=== PATIENT | male | born 1975 | race Caucasian/White ===

== ENCOUNTER 2016-05-14 19:31 | Inpatient (IN) | payer SELFPAY ==
[~2016-05-14] VITALS: Ht 167.6 cm; Wt 69.2 kg
[~2016-05-14 19:31] MED LIST: CEPH500C3 PO; DICL75 PO
[2016-05-14 19:33] VITALS: BP 130/75; PULSE 106; RESP 18; TEMP 101; O2SAT 97
--- NOTE | 2016-05-14 20:17 | PD ---
Physical Exam Date Seen by Provider: May 14, 2016 Time Seen by Provider: 20:12 Narrative 40 YOWM C/O YEST AM WITH PIECE OF TILE IN HIS L KNEE. NOW INCREASED PAIN AND RED STREAKING ON LEG. POS F/C ,NAUSEA BUT NO VOMITING. IUTD VS NOTED. PT AWAITING BED PLACEMENT. Data Data Last Documented VS Vital Signs Date Time Temp Pulse Resp B/P Pulse Ox O2 Delivery O2 Flow Rate FiO2 05/14/16 19:33 101.0 106 18 130/[address] [facility] Medical Record Reviewed: Yes Supervised Visit with KELSI: Yes Jonathan Copeland May 14, 2016 20:17
[2016-05-14] MEDS ORDERED: SODIUM CHLOR 0.9% 1000 ML INJ 1,000 ML IV ONE ×2 (20:51)
[2016-05-14] MEDS ORDERED: VANCOMYCIN INJ 1,000 MG in SODIUM CHLOR 0.9% 250 ML INJ 250 ML IV STA (20:51)
[2016-05-14] MEDS ORDERED: SODIUM CHLOR 0.9% 1000 ML INJ 400 ML IV ONE (20:51)
[2016-05-14] MEDS ORDERED: PIPERACIL-TAZO 4.5 GM PREMIX 100 ML IV STA (20:51)
[2016-05-14] MEDS ORDERED: IBUPROFEN 800 MG TAB PO ONE (21:00)
[2016-05-14] MEDS ORDERED: ONDANSETRON HCL 4 MG/2 ML VIAL IV ONE (21:00)
[2016-05-14 21:11] VITALS: RESP 22; O2SAT 98
[2016-05-14 21:14] VITALS: BP 124/61; PULSE 95; RESP 22; O2SAT 98
--- NOTE | 2016-05-14 21:15 | PD ---
HPI Chief Complaint: Skin Problem Time Seen by Provider: 20:56 Travel History International Travel<30 days: No Contact w/Intl Traveler<30days: No Traveled to known affect area: No History of Present Illness HPI Patient is a 40-year-old male presenting to the emergency room for evaluation of left knee pain and swelling. Patient states he had a piece of tile stuck and it yesterday while he was removing tile from his home. He believes he got it all out however he's had increased redness, swelling, pain since that time. He reports that his tetanus vaccine is up-to-date, it was given in the last 3 years. He denies any significant past medical history. He states that he's had body aches and chills and has felt sick all day. Patient denies any IV drug use. PFSH Past Medical History Medical History: Denies Significant Hx Diminished Hearing: No Immunizations Current: Yes Tetanus Vaccination: < 5 Years Past Surgical History Surgical History: No Previous Surgery Social History Alcohol Use: No Tobacco Use: Yes (1 PK) Substance Use: Yes (MARIJUANA) Allergies-Medications (Allergen,Severity, Reaction): Coded Allergies: No Known Allergies (Verified , 05/14/16) Reported Meds & Prescriptions Reported Meds & Active Scripts Active No Active Prescriptions or Reported Medications Review of Systems Except as stated in HPI: all other systems reviewed are Neg General / Constitutional: Positive: Fever, Chills HENT: No: Headaches Cardiovascular: No: Chest Pain or Discomfort Respiratory: No: Cough, Shortness of Breath Gastrointestinal: No: Nausea, Vomiting, Abdominal Pain Genitourinary: No: Dysuria Musculoskeletal: Positive: Myalgias, Edema, Pain Skin: Positive Change in Pigmentation, Positive Lesions Neurologic: No: Weakness, Dizziness Physical Exam Narrative GENERAL: Well-developed, well-nourished, alert male. Appears uncomfortable, in no acute distress. SKIN: Focused skin assessment warm/dry. Significant erythema and induration to left anterior knee, scabbed lesion on the Patella. Tender to palpation, warm to touch. Erythema extends down the anterior left hayes and lateral calf. HEAD: Atraumatic. Normocephalic. EYES: Pupils equal and round. No scleral icterus. No injection or drainage. ENT: No nasal bleeding or discharge. Mucous membranes pink and moist. NECK: Trachea midline. No JVD. CARDIOVASCULAR: Regular rate and rhythm. No murmur appreciated. RESPIRATORY: No accessory muscle use. Clear to auscultation. Breath sounds equal bilaterally. GASTROINTESTINAL: Abdomen soft, non-tender, nondistended. Hepatic and splenic margins not palpable. MUSCULOSKELETAL: No obvious deformities. No clubbing. No cyanosis. Mild edema noted to left anterior knee. Positive pedal pulses, brisk less than 3 second capillary refill. NEUROLOGICAL: Awake and alert. No obvious cranial nerve deficits. Motor grossly within normal limits. Normal speech. PSYCHIATRIC: Appropriate mood and affect; insight and judgment normal. Data Data Last Documented VS Vital Signs Date Time Temp Pulse Resp B/P Pulse Ox O2 Delivery O2 Flow Rate FiO2 05/14/16 21:14 95 22 124/61 98 Room Air 05/14/16 19:33 101.0 Orders Complete Blood Count With Diff (05/14/16 20:51) Comprehensive Metabolic Panel (05/14/16 20:51) Prothrombin Time / Inr (Pt) (05/14/16 20:51) Act Partial Throm Time (Ptt) (05/14/16 20:51) Lactic Acid Sepsis Protocol (05/14/16 20:51) Magnesium (Mg) (05/14/16 20:51) Blood Culture (05/14/16 20:51) Blood Glucose (05/14/16 20:51) Ecg Monitoring (05/14/16 20:51) Iv Access Insert/Monitor (05/14/16 20:51) Oximetry (05/14/16 20:51) Oxygen Administration (05/14/16 20:51) Ibuprofen (Motrin) (05/14/16 21:00) Ondansetron Inj (Zofran Inj) (05/14/16 21:00) Piperacil-Tazo 4.5 Gm Premix (Zosyn 4.5 (05/14/16 20:51) Vancomycin Inj (Vancomycin Inj) (05/14/16 20:51) Sodium Chlor 0.9% 1000 Ml Inj (Ns 1000 M (05/14/16 20:51) Sodium Chlor 0.9% 1000 Ml Inj (Ns 1000 M (05/14/16 20:51) Sodium Chlor 0.9% 1000 Ml Inj (Ns 1000 M (05/14/16 20:51) Knee, Complete (4vws) (05/14/16 ) C-Reactive Protein (Crp) (05/14/16 21:41) Westergren Sedimentation Rate (05/14/16 21:41) Admit Order (Ed Use Only) (05/14/16 23:05) Labs Laboratory Tests Test 05/14/16 21:00 White Blood Count 12.2 TH/MM3 Red Blood Count 4.57 MIL/MM3 Hemoglobin 12.8 GM/DL Hematocrit 37.9 % Mean Corpuscular Volume 83.0 FL Mean Corpuscular Hemoglobin 27.9 PG Mean Corpuscular Hemoglobin 33.7 % Concent Red Cell Distribution Width 14.0 % Platelet Count 276 TH/MM3 Mean Platelet Volume 7.2 FL Neutrophils (%) (Auto) 75.3 % Lymphocytes (%) (Auto) 15.6 % Monocytes (%) (Auto) 8.7 % Eosinophils (%) (Auto) 0.2 % Basophils (%) (Auto) 0.2 % Neutrophils # (Auto) 9.2 TH/MM3 Lymphocytes # (Auto) 1.9 TH/MM3 Monocytes # (Auto) 1.1 TH/MM3 Eosinophils # (Auto) 0.0 TH/MM3 Basophils # (Auto) 0.0 TH/MM3 CBC Comment DIFF FINAL Differential Comment Erythrocyte Sedimentation Rate 24 mm/hr Prothrombin Time 11.0 SEC Prothromb Time International 1.0 RATIO Ratio Activated Partial 30.8 SEC Thromboplast Time Sodium Level 138 MEQ/L Potassium Level 4.0 MEQ/L Chloride Level 107 MEQ/L Carbon Dioxide Level 26.2 MEQ/L Anion Gap 5 MEQ/L Blood Urea Nitrogen 14 MG/DL Creatinine 0.94 MG/DL Estimat Glomerular Filtration 89 ML/MIN Rate Random Glucose 111 MG/DL Lactic Acid Level 1.4 mmol/L Calcium Level 8.6 MG/DL Magnesium Level 1.9 MG/DL Total Bilirubin 0.2 MG/DL Aspartate Amino Transf 16 U/L (AST/SGOT) Alanine Aminotransferase 20 U/L (ALT/SGPT) Alkaline Phosphatase 74 U/L C-Reactive Protein 8.60 MG/DL Total Protein 6.9 GM/DL Albumin 3.4 GM/DL MDM Medical Decision Making Medical Screen Exam Complete: Yes Emergency Medical Condition: Yes Interpretation(s) Vital Signs Date Time Temp Pulse Resp B/P Pulse Ox O2 Delivery O2 Flow Rate FiO2 05/14/16 20:49 16 05/14/16 19:33 101.0 106 18 130/75 97 Room Air Differential Diagnosis Cellulitis versus abscess versus septic arthritis versus sepsis versus other Narrative Course Patient is a 40-year-old male presenting to emergency for evaluation of left knee pain, redness and swelling. Patient is febrile with a temp of 101, ibuprofen 800 mg by mouth 1 dose ordered. IV fluids ordered. X-ray of the left knee ordered. Sepsis protocol initiated, blood cultures and lactic acid obtained. X-ray of the left knee shows prepatellar soft tissue swelling, no acute fracture. CBC shows white count 12.2 with left shift. CRP is 8.60 Lactic acid 1.4 Chemistry is unremarkable Vital signs reassessed, patient is afebrile with a temp of 99.1. Patient received 1 g of vancomycin IV as well as Zosyn. Patient meets sepsis criteria with a temp of 101, tachycardic on arrival, white count elevated greater than 12,000. Suspected source would be cellulitis of the left knee. Patient has responded well to IV fluid resuscitation, heart rate is currently in the 90s. [facility] paged for admission. Dr. Ko accepted admission. Orders placed. Sepsis Criteria SIRS Criteria (2 or more): Temp > 100.9 or < 96.8, Heart rate over 90, WBC > 53059, < 4000 or > 10% bands Sepsis Criteria (SIRS+source): Infect source susp/known (left knee cellulitis) Criteria Outcome: Meets sepsis criteria Diagnosis Primary Impression: Sepsis Qualified Code: A41.9 - Sepsis, due to unspecified organism Admitting Information Admitting Physician Requests: Admit Scripts No Active Prescriptions or Reported Meds Condition: Stable Rona Villareal [facility] May 14, 2016 21:15
[2016-05-14 21:26] LABS: AUTOMATED NEUTROPHIL # 9.2 TH/MM3 (1.8-7.7); BASOPHIL % 0.2 % (0.0-2.0); EOSINOPHIL % 0.2 % (0.0-4.0); HEMATOCRIT 37.9 % (39.0-51.0); HEMO FLAGS DIFF FINAL; LYMPH % 15.6 % (9.0-44.0); LYMPHOCYTE # 1.9 TH/MM3 (1.0-4.8); MEAN CORPUSCULAR HEMOGLOBIN 27.9 PG (27.0-34.0); MEAN CORPUSCULAR HGB CONC 33.7 % (32.0-36.0); MONO % 8.7 % (0.0-8.0); NEUT % 75.3 % (16.0-70.0); PLATELET COUNT 276 TH/MM3 (150-450); RED BLOOD COUNT 4.57 MIL/MM3 (4.50-5.90); WHITE BLOOD COUNT 12.2 TH/MM3 (4.0-11.0)
--- NOTE | 2016-05-14 21:40 | RADRPT ---
EXAM DATE/TIME: 05/14/2016 21:07 [place] COMPARISON: No previous studies available for comparison. INDICATIONS : Pain, swelling and redness with abrasion left knee, injured on a piece of tile. MEDICAL HISTORY : None. SURGICAL HISTORY : None. ENCOUNTER: Initial ACUITY: 2 days PAIN SCORE: 10/10 LOCATION: Left Knee FINDINGS: Four view examination of the left knee demonstrates no evidence of fracture or dislocation. Bony min eralization is normal. The articular surfaces are intact. There is soft tissue swelling in the prepa tellar soft tissues. CONCLUSION: 1. Prepatellar soft tissue swelling. No acute bony abnormality. Jonathan Turner MD on May 14, 2016 at 21:36 Board Certified Radiologist. This report was verified electronically.
[2016-05-14 21:48] LABS: APTT (PATIENT) 30.8 SEC (24.3-30.1)
[2016-05-14 21:55] LABS: ANION GAP 5 MEQ/L (5-15); AST (GOT) 16 U/L (15-37); BICARBONATE 26.2 MEQ/L (21.0-32.0); BLOOD UREA NITROGEN 14 MG/DL (7-18); CHLORIDE 107 MEQ/L (98-107); GLOMERULAR FILTRATION RATE 89 ML/MIN (>89); MAGNESIUM 1.9 MG/DL (1.5-2.5); SODIUM (NA) 138 MEQ/L (136-145)
[2016-05-14 21:58] LABS: ALKALINE PHOSPHATASE 74 U/L (45-117); ALT (GPT) 20 U/L (12-78); TOTAL BILIRUBIN ADULT 0.2 MG/DL (0.2-1.0)
--- NOTE | 2016-05-14 23:10 | HHI.HP ---
[facility] No Primary Care Physician Admission Diagnosis sepsis Diagnoses: (1) Sepsis Diagnosis: Principal (2) Left knee skin infection Diagnosis: Principal (3) Tobacco abuse Diagnosis: Principal Travel History International Travel<30 Days: No Contact w/Intl Traveler <30 Da: No Traveled to Known Affected Are: No History of Present Illness This is a 40-year-old male with no significant PMH who presented to the ER with complaints of left knee pain and swelling x1 day. States he was lifting up tile in his house when a piece of it got lodged in his knee. Has had worsening pain/swelling since that time. Denies fever or chills. On arrival, BP 130/75, HR 106, O2 sat 97% on RA, Temp 101.0. WBC 12.2. ESR 24. Chemistry essentially unremarkable. Lactic Acid 1.4. Knee X-ray with prepatellar soft tissue swelling, no foreign body noted. S/p Blood Cultures, Vanc/Zosyn in ER. Review of Systems Except as stated in HPI: all other systems reviewed are Neg ROS: 14 point review of systems otherwise negative. Past Family Social History Past Medical History PMH: None Past Surgical History PAST SURGICAL HISTORY: None Allergies: Coded Allergies: No Known Allergies (Verified , 05/14/16) Family History PAST FAMILY HISTORY: Reviewed. No h/o DM or CAD Social History PAST SOCIAL HISTORY: Negative for alcohol. Smokes 1ppd. +Marijuana. Physical Exam Vital Signs Vital Signs Date Time Temp Pulse Resp B/P Pulse Ox O2 Delivery O2 Flow Rate FiO2 05/14/16 21:14 95 22 124/61 98 Room Air 05/14/16 21:11 22 98 Room Air 05/14/16 21:11 98 Room Air 05/14/16 20:49 16 05/14/16 19:33 101.0 106 18 130/75 97 Room Air Physical Exam PE: GENERAL: Young white male in no acute distress. HEENT: PERRLA, EOMI. No scleral icterus or conjunctival pallor. No lid lag or facial droop. CARDIOVASCULAR: Regular rate and rhythm. No obvious murmurs to auscultation. No chest tenderness to palpation. RESPIRATORY: No obvious rhonchi or wheezing. Clear to auscultation. Breath sounds equal bilaterally. GASTROINTESTINAL: Abdomen soft, non-tender, nondistended. BS normal. MUSCULOSKELETAL: Extremities without clubbing, cyanosis, or edema. No obvious deformities. Left knee w/ small scab, +erythema/edema to LLE. NEUROLOGICAL: Awake, alert and oriented x4. No focal neurologic deficits. Moving both upper and lower extremities spontaneously. Laboratory Laboratory Tests Test 05/14/16 21:00 White Blood Count 12.2 Red Blood Count 4.57 Hemoglobin 12.8 Hematocrit 37.9 Mean Corpuscular Volume 83.0 Mean Corpuscular Hemoglobin 27.9 Mean Corpuscular Hemoglobin 33.7 Concent Red Cell Distribution Width 14.0 Platelet Count 276 Mean Platelet Volume 7.2 Neutrophils (%) (Auto) 75.3 Lymphocytes (%) (Auto) 15.6 Monocytes (%) (Auto) 8.7 Eosinophils (%) (Auto) 0.2 Basophils (%) (Auto) 0.2 Neutrophils # (Auto) 9.2 Lymphocytes # (Auto) 1.9 Monocytes # (Auto) 1.1 Eosinophils # (Auto) 0.0 Basophils # (Auto) 0.0 CBC Comment DIFF FINAL Differential Comment Erythrocyte Sedimentation Rate 24 Prothrombin Time 11.0 Prothromb Time International 1.0 Ratio Activated Partial 30.8 Thromboplast Time Sodium Level 138 Potassium Level 4.0 Chloride Level 107 Carbon Dioxide Level 26.2 Anion Gap 5 Blood Urea Nitrogen 14 Creatinine 0.94 Estimat Glomerular Filtration 89 Rate Random Glucose 111 Lactic Acid Level 1.4 Calcium Level 8.6 Magnesium Level 1.9 Total Bilirubin 0.2 Aspartate Amino Transf 16 (AST/SGOT) Alanine Aminotransferase 20 (ALT/SGPT) Alkaline Phosphatase 74 C-Reactive Protein 8.60 Total Protein 6.9 Albumin 3.4 Date/Time Procedure Status Source Growth 05/14/16 21:15 Aerobic Blood Culture Received Blood Peripheral Pending 05/14/16 21:15 Anaerobic Blood Culture Received Blood Peripheral Pending Result Diagram: 05/14/16 2100 05/14/16 2100 Assessment and Plan Problem List: (1) Sepsis ICD Code: A41.9 Status: Acute (2) Left knee skin infection Status: Acute (3) Tobacco abuse ICD Code: Z72.0 Status: Acute Assessment and Plan A/P: 1. Sepsis: Temp 101.0, HR 106, WBC 12.2, Source-Left Knee Infection. S/p Blood Cultures, Vanc/Zosyn in ER. Follow up cultures, continue w/ IV Abx. 2. Left Knee Infection: s/p injury w/ floor tile x1 day, Knee X-ray w/ prepatellar soft tissue swelling, no foreign body noted, images reviewed by me. Continue w/ IV Abx as above, follow up cultures, Ortho eval if needed. 3. Tobacco Abuse: Pt counselled. NicoDerm prn if needed. 4. DVT Prophylaxis: Mechanical contraindication due to injury/wound, pt ambulatory. 5. Social work for d/c planning as needed. 6. Case discussed w/ ER physician at length. Physician Certification 2 Midnight Certification Type: Admission for Inpatient Services Order for Inpatient Services The services are ordered in accordance with Medicare regulations or non- Medicare payer requirements, as applicable. In the case of services not specified as inpatient-only, they are appropriately provided as inpatient services in accordance with the 2-midnight benchmark. Estimated LOS (days): 2 days is the estimated time the patient will need to remain in the hospital, assuming treatment plan goals are met and no additional complications. Post-Hospital Plan: Not yet determined Problem Qualifiers (1) Sepsis: Qualified Code: A41.9 - Sepsis, due to unspecified organism Tatiana Ko MD May 14, 2016 23:10
[2016-05-14] MEDS ORDERED: ONDANSETRON HCL 4 MG/2 ML VIAL IVP PRN (23:15)
[2016-05-14] MEDS ORDERED: ACETAMINOPHEN 325 MG TAB PO PRN (23:15)
[2016-05-14] MEDS ORDERED: SODIUM CHLORIDE 0.9% FLUSH 10 ML FLUSH IV FLUSH PRN (23:15)
[2016-05-14] MEDS ORDERED: Vancomycin Consult Pharmacy 1 EA OTHER SCH (23:15)
[2016-05-14] MEDS ORDERED: MORPHINE SULFATE 4 MG/ML INJ IV PRN (23:15)
[2016-05-14] MEDS ORDERED: BISACODYL 10 MG SUPP RECTAL PRN (23:15)
[2016-05-14] MEDS: SODIUM CHLOR 0.9% 1000 ML INJ 1,000 ML IV SCH (23:42)
[2016-05-14] MEDS ORDERED: VANCOMYCIN 1,000 MG/NS 250 ML IV ONE ×2 (23:59)
[2016-05-15] VITALS (9 sets, daily range): BP systolic 104–136; BP diastolic 57–78; PULSE 71–85; RESP 16–18; TEMP 98–98.3; O2SAT 96–99
[2016-05-15] MEDS: PIPERACIL-TAZO 4.5 GM PREMIX 100 ML IV SCH ×4 (04:55→20:59)
[2016-05-15] MEDS: ACETAMINOPHEN/HYDROcodone 325 MG/5 MG TAB PO PRN ×4 (05:15→18:29)
[2016-05-15 07:18] LABS: AUTOMATED NEUTROPHIL # 7.9 TH/MM3 (1.8-7.7); BASOPHIL % 0.2 % (0.0-2.0); EOSINOPHIL % 0.3 % (0.0-4.0); HEMATOCRIT 35.3 % (39.0-51.0); HEMO FLAGS DIFF FINAL; LYMPH % 17.7 % (9.0-44.0); LYMPHOCYTE # 1.9 TH/MM3 (1.0-4.8); MEAN CELL VOLUME 83.8 FL (80.0-100.0); MEAN CORPUSCULAR HEMOGLOBIN 27.5 PG (27.0-34.0); MEAN CORPUSCULAR HGB CONC 32.9 % (32.0-36.0); NEUT % 72.8 % (16.0-70.0); PLATELET COUNT 240 TH/MM3 (150-450); RED BLOOD COUNT 4.21 MIL/MM3 (4.50-5.90); RED CELL DISTRIBUTION WIDTH 14.9 % (11.6-17.2); WHITE BLOOD COUNT 10.9 TH/MM3 (4.0-11.0)
[2016-05-15] MEDS: SODIUM CHLORIDE 0.9% FLUSH 10 ML FLUSH IV FLUSH SCH ×2 (07:48→21:00)
[2016-05-15 07:55] LABS: ALKALINE PHOSPHATASE 68 U/L (45-117); ALT (GPT) 30 U/L (12-78); ANION GAP 5 MEQ/L (5-15); AST (GOT) 30 U/L (15-37); BICARBONATE 27.3 MEQ/L (21.0-32.0); BLOOD UREA NITROGEN 10 MG/DL (7-18); CHLORIDE 108 MEQ/L (98-107); GLOMERULAR FILTRATION RATE 104 ML/MIN (>89); POTASSIUM 3.8 MEQ/L (3.5-5.1); SODIUM (NA) 140 MEQ/L (136-145); TOTAL BILIRUBIN ADULT 0.6 MG/DL (0.2-1.0)
[2016-05-15] MEDS: SODIUM CHLOR 0.9% 1000 ML INJ 1,000 ML IV SCH (08:00)
--- NOTE | 2016-05-15 11:21 | HHI.PR ---
Subjective Remarks Follow-up sepsis/left knee cellulitis 05/15/16-patient seen and examined, currently afebrile, continued to complain of left knee pain. denies any chest pain or shortness of breath Objective Vitals Vital Signs Date Time Temp Pulse Resp B/P Pulse Ox O2 Delivery O2 Flow Rate FiO2 05/15/16 09:26 Room Air 05/15/16 08:00 73 05/15/16 08:00 98.0 74 18 129/68 98 05/15/16 05:08 75 05/15/16 04:00 98.3 82 16 136/78 99 05/15/16 04:00 Room Air 05/15/16 03:24 Room Air 05/15/16 03:24 98.1 75 16 104/60 98 05/15/16 01:42 98.1 75 16 104/60 98 05/15/16 00:06 73 16 118/60 98 Room Air 05/14/16 21:14 95 22 124/61 98 Room Air 05/14/16 21:11 22 98 Room Air 05/14/16 21:11 98 Room Air 05/14/16 20:49 16 05/14/16 19:33 101.0 106 18 130/75 97 Room Air I/O 05/14/16 05/14/16 05/14/16 05/15/16 05/15/16 05/15/16 07:00 15:00 23:00 07:00 15:00 23:00 Intake Total 586 ml Output Total 755 ml Balance -169 ml Intake IV Total 586 ml Output Urine Total 755 ml Result Diagram: 05/15/16 0624 05/15/16 0624 Imaging Last Impressions Knee X-Ray 05/14/16 0000 Signed Impressions: Service Date/Time: Saturday, May 14, 2016 21:07 - CONCLUSION: 1. Prepatellar soft tissue swelling. No acute bony abnormality. Jonathan Turner MD Objective Remarks GENERAL: NAD SKIN: Warm and dry. erythema and redness@left knee HEAD: Normocephalic. EYES: No scleral icterus. No injection or drainage. NECK: Supple, trachea midline. No JVD or lymphadenopathy. CARDIOVASCULAR: Regular rate and rhythm without murmurs, gallops, or rubs. RESPIRATORY: Breath sounds equal bilaterally. No accessory muscle use. GASTROINTESTINAL: Abdomen soft, non-tender, nondistended. MUSCULOSKELETAL: No cyanosis, or edema. Limited ROM Left knee BACK: Nontender without obvious deformity. No CVA tenderness. A/P Problem List: (1) Sepsis ICD Code: A41.9 Status: Acute (2) Left knee skin infection Status: Acute (3) Tobacco abuse ICD Code: Z72.0 Status: Acute (4) Cellulitis of knee, left ICD Code: L03.116 Status: Acute Assessment and Plan 40-year-old with 1. Sepsis: Source-Left Knee Infection. S/p Blood Cultures, Vanc/Zosyn in ER. Follow up cultures, continue w/ IV Abx. 2. Left Knee Infection: Knee X-ray w/ prepatellar soft tissue swelling, no foreign body noted. Continue w/ IV Abx as above, follow up cultures, Ortho eval if needed. Consider knee US 3. Leukocytosis: Resolved 4. Tobacco Abuse: Pt counselled. NicoDerm prn if needed. 5. DVT Prophylaxis: Mechanical contraindication due to injury/wound, pt ambulatory. Problem Qualifiers (1) Sepsis: Qualified Code: A41.9 - Sepsis, due to unspecified organism Bi Bowling MD May 15, 2016 11:21
[2016-05-15] MEDS: VANCOMYCIN INJ 1,250 MG in SODIUM CHLOR 0.9% 250 ML INJ 250 ML IV SCH (11:49)
[2016-05-15] MEDS: NICOTINE 21 MG/24 HR PATCH T-DERMAL SCH (18:58)
[2016-05-16] MEDS: VANCOMYCIN INJ 1,250 MG in SODIUM CHLOR 0.9% 250 ML INJ 250 ML IV SCH (00:33)
[2016-05-16] MEDS: ACETAMINOPHEN/HYDROcodone 325 MG/5 MG TAB PO PRN ×3 (00:35→09:58)
[2016-05-16 01:12] VITALS: BP 132/62; PULSE 90; RESP 21; TEMP 99.9; O2SAT 95
[2016-05-16] MEDS: PIPERACIL-TAZO 4.5 GM PREMIX 100 ML IV SCH ×2 (03:30→08:21)
[2016-05-16 04:35] VITALS: BP 115/55; PULSE 75; RESP 20; TEMP 97.9; O2SAT 97
[2016-05-16 08:00] VITALS: BP 150/77; PULSE 84; RESP 12; TEMP 98.1; O2SAT 95
[2016-05-16] MEDS: NICOTINE 21 MG/24 HR PATCH T-DERMAL SCH (08:21)
[2016-05-16] MEDS: SODIUM CHLORIDE 0.9% FLUSH 10 ML FLUSH IV FLUSH SCH (08:21)
--- NOTE | 2016-05-16 08:52 | HHI.PR ---
Subjective Remarks Follow-up sepsis/left knee cellulitis 05/15/16-patient seen and examined, currently afebrile, continued to complain of left knee pain. denies any chest pain or shortness of breath 05/16/16-patient seen and examined. Afebrile. Reports significant improvement of left knee redness/cellulitis. States now he is able to move LOWER extremity and able to put more weight on it Objective Vitals Vital Signs Date Time Temp Pulse Resp B/P Pulse Ox O2 Delivery O2 Flow Rate FiO2 05/16/16 04:35 97.9 75 20 115/55 97 05/16/16 01:12 99.9 90 21 132/62 95 05/15/16 20:00 Room Air 05/15/16 20:00 82 05/15/16 16:00 98.1 85 16 124/57 96 05/15/16 12:00 98.3 71 18 122/63 97 05/15/16 09:26 Room Air I/O 05/15/16 05/15/16 05/15/16 05/16/16 05/16/16 05/16/16 07:00 15:00 23:00 07:00 15:00 23:00 Intake Total 586 ml 600 ml 660 ml Output Total 755 ml 700 ml Balance -169 ml -100 ml 660 ml Intake Oral 600 ml 660 ml IV Total 586 ml Output Urine Total 755 ml 700 ml # Voids 2 # Bowel Movements 0 0 Result Diagram: 05/15/16 0624 05/15/16 0624 Imaging Last Impressions Knee X-Ray 05/14/16 0000 Signed Impressions: Service Date/Time: Saturday, May 14, 2016 21:07 - CONCLUSION: 1. Prepatellar soft tissue swelling. No acute bony abnormality. Jonathan Turner MD Objective Remarks GENERAL: NAD SKIN: Warm and dry.improving erythema and redness@left knee-fluctuance HEAD: Normocephalic. EYES: No scleral icterus. No injection or drainage. NECK: Supple, trachea midline. No JVD or lymphadenopathy. CARDIOVASCULAR: Regular rate and rhythm without murmurs, gallops, or rubs. RESPIRATORY: Breath sounds equal bilaterally. No accessory muscle use. GASTROINTESTINAL: Abdomen soft, non-tender, nondistended. MUSCULOSKELETAL: No cyanosis, or edema. increase ROM Left knee BACK: Nontender without obvious deformity. No CVA tenderness. A/P Problem List: (1) Sepsis ICD Code: A41.9 Status: Acute (2) Left knee skin infection Status: Acute (3) Tobacco abuse ICD Code: Z72.0 Status: Acute (4) Cellulitis of knee, left ICD Code: L03.116 Status: Acute Assessment and Plan 40-year-old with 1. Sepsis: Resolved. Source-Left Knee Infection. S/p Blood Cultures, Vanc/ Zosyn in ER. Follow up cultures, continue w/ IV Abx. 2. Left Knee Infection: Knee X-ray w/ prepatellar soft tissue swelling, no foreign body noted. Continue w/ IV Abx as above, follow up cultures, Ortho eval if needed. Consider knee US 3. Leukocytosis: Resolved 4. Tobacco Abuse: Pt counselled. Geniam . 5. DVT Prophylaxis: Mechanical contraindication due to injury/wound, pt ambulatory. Problem Qualifiers (1) Sepsis: Qualified Code: A41.9 - Sepsis, due to unspecified organism Bi Bowling MD May 16, 2016 08:51
--- NOTE | 2016-05-16 08:53 | HHI.DS ---
Discharge Summary Admission Date May 14, 2016 at 23:06 Discharge Date: May 16, 2016 Admitting Diagnosis sepsis (1) Sepsis ICD Code: A41.9 (2) Left knee skin infection (3) Tobacco abuse ICD Code: Z72.0 (4) Cellulitis of knee, left ICD Code: L03.116 Procedures none Brief History - From Admission This is a 40-year-old male with no significant PMH who presented to the ER with complaints of left knee pain and swelling x1 day. States he was lifting up tile in his house when a piece of it got lodged in his knee. Has had worsening pain/swelling since that time. Denies fever or chills. On arrival, BP 130/75, HR 106, O2 sat 97% on RA, Temp 101.0. WBC 12.2. ESR 24. Chemistry essentially unremarkable. Lactic Acid 1.4. Knee X-ray with prepatellar soft tissue swelling, no foreign body noted. S/p Blood Cultures, Vanc/Zosyn in ER. CBC/BMP: 05/15/16 0624 05/15/16 0624 Significant Findings Laboratory Tests Test 05/14/16 05/15/16 21:00 06:24 White Blood Count 12.2 TH/MM3 (4.0-11.0) Hemoglobin 12.8 GM/DL 11.6 GM/DL (13.0-17.0) (13.0-17.0) Hematocrit 37.9 % 35.3 % (39.0-51.0) (39.0-51.0) Neutrophils (%) (Auto) 75.3 % 72.8 % (16.0-70.0) (16.0-70.0) Monocytes (%) (Auto) 8.7 % (0.0-8.0) 9.0 % (0.0-8.0) Neutrophils # (Auto) 9.2 TH/MM3 7.9 TH/MM3 (1.8-7.7) (1.8-7.7) Monocytes # (Auto) 1.1 TH/MM3 1.0 TH/MM3 (0-0.9) (0-0.9) Erythrocyte Sedimentation Rate 24 mm/hr (0-15) Activated Partial 30.8 SEC Thromboplast Time (24.3-30.1) Random Glucose 111 MG/DL (74-106) C-Reactive Protein 8.60 MG/DL (0.00-0.30) Red Blood Count 4.21 MIL/MM3 (4.50-5.90) Chloride Level 108 MEQ/L (98-107) Calcium Level 7.9 MG/DL (8.5-10.1) Total Protein 6.0 GM/DL (6.4-8.2) Albumin 2.8 GM/DL (3.4-5.0) PE at Discharge GENERAL: NAD SKIN: Warm and dry.improving erythema and redness@left knee-fluctuance HEAD: Normocephalic. EYES: No scleral icterus. No injection or drainage. NECK: Supple, trachea midline. No JVD or lymphadenopathy. CARDIOVASCULAR: Regular rate and rhythm without murmurs, gallops, or rubs. RESPIRATORY: Breath sounds equal bilaterally. No accessory muscle use. GASTROINTESTINAL: Abdomen soft, non-tender, nondistended. MUSCULOSKELETAL: No cyanosis, or edema. increase ROM Left knee BACK: Nontender without obvious deformity. No CVA tenderness. Hospital Course 1. Sepsis: Resolved. Source-Left Knee Infection. S/p Blood Cultures, Vanc/ Zosyn in ER. He was treated w/ IV Abx. 2. Left Knee Infection: Knee X-ray w/ prepatellar soft tissue swelling, no foreign body noted. He was treated w/ IV Abx as above, and cultures remain NTD 3. Leukocytosis: Resolved 4. Tobacco Abuse: Pt counselled. Barrera . 5. DVT Prophylaxis: Mechanical contraindication due to injury/wound, pt ambulatory. Pt Condition on Discharge: Stable Discharge Disposition: Discharge Home Discharge Time: <= 30 minutes Discharge Instructions Follow up Referrals: PCP Follow-up - 1 Week New Medications: Cephalexin (Keflex) 500 Mg Cap 500 MG PO Q8H Infection #30 Ref 0 CAP Sulfamethoxazole-Trimethoprim (Bactrim DS) 800-160 Mg Tab 1 TAB PO BID Infection #14 Ref 0 TAB Bi Bowling MD May 16, 2016 08:53
[2016-05-16] MEDS ORDERED: CEPH-460 PO (08:59)
[2016-05-16] MEDS ORDERED: BACT800T5 PO (08:59)
[2016-05-16] MEDS ORDERED: REMOVE OLD PATCH T-DERMAL SCH (09:00)
[2016-05-16] MEDS ORDERED: PHARMACY ORDERED LAB ONE (11:45)
== END 2016-05-16 10:24 | disposition home or self-care (01) | DRG 872 ==
LOC: NEPE 19:31 → NEDA 23:06 → N04B 05-15 03:55
PROVIDERS: ADMIT Hospitalist; ATTEND Hospitalist
DX: A41.9 Sepsis, unspecified organism (principal); L03.116 Cellulitis of left lower limb; F17.200 Nicotine dependence, unspecified, uncomplicated
CPT/HCPCS: 73564; 80053; 82565; 83605; 83735; 85025; 85610; 85652; 85730; 86140; 87040; 96374; 96375; J2405; J2543; J3370; J7030; J7050

== ENCOUNTER 2017-01-17 10:39 | Emergency (ER) | payer SELFPAY ==
[~2017-01-17] VITALS: Ht 170.2 cm; Wt 78.0 kg
[~2017-01-17 10:39] MED LIST changes: +BACT800T5 PO; +CEPH-460 PO; -CEPH500C3 PO; -DICL75 PO
[2017-01-17 10:41] VITALS: BP 143/96; PULSE 92; RESP 20; TEMP 98; O2SAT 100
--- NOTE | 2017-01-17 11:04 | PD ---
HPI Chief Complaint: Back/ Neck Pain or Injury Time Seen by Provider: 10:51 Travel History International Travel<30 days: No Contact w/Intl Traveler<30days: No History of Present Illness HPI 41 YO M presents to the ED for evaluation of 10/10 back pain, radiating down the right leg. Onset just before arrival, after the patient was attempting to lower a generator out of the back of a truck. Patient states that he felt and heard a pop. He states that pain began shooting down his leg. He endorses numbness of that leg. He has been ambulatory since the accident. He denies weakness, limitations to range of motion, saddle anesthesia or urinary/fecal incontinence. He endorses a history of sciatica in the past. No treatment attempted before arrival. PFSH Past Medical History Cancer: No Cardiovascular Problems: No Diminished Hearing: No Endocrine: No Genitourinary: No Immune Disorder: No Musculoskeletal: No Neurologic: No Psychiatric: No Reproductive: No Respiratory: No Immunizations Current: Yes Social History Alcohol Use: No Tobacco Use: Yes (1 PK) Substance Use: Yes (MARIJUANA) Allergies-Medications (Allergen,Severity, Reaction): Coded Allergies: No Known Allergies (Verified Allergy, Unknown, 01/17/17) Reported Meds & Prescriptions Reported Meds & Active Scripts Active Flexeril (Cyclobenzaprine HCl) 10 Mg Tab 10 Mg PO TID Ibuprofen 800 Mg Tab 800 Mg PO Q8H PRN Review of Systems Except as stated in HPI: all other systems reviewed are Neg Physical Exam Narrative GENERAL: Well-nourished, well-developed white male in no acute distress. SKIN: Focused skin assessment warm/dry. HEAD: Normocephalic. EYES: No scleral icterus. No injection or drainage. NECK: Supple, trachea midline. No JVD or lymphadenopathy. CARDIOVASCULAR: Regular rate and rhythm without murmurs, gallops, or rubs. RESPIRATORY: Breath sounds equal bilaterally. No accessory muscle use. GASTROINTESTINAL: Abdomen soft, non-tender, nondistended. MUSCULOSKELETAL: No cyanosis, or edema. 5/5 strength in the bilateral lower extremities of plantarflexion, dorsiflexion, knee and hip flexion. Straight leg raise negative bilaterally. BACK: No obvious deformity. No CVA tenderness. Tender to palpation in the midline lumbar spine. Tender to palpation of the right-sided paraspinal musculature in the lumbar area. Data Data Last Documented VS Vital Signs Date Time Temp Pulse Resp B/P (MAP) Pulse Ox O2 Delivery O2 Flow Rate FiO2 01/17/17 10:41 98.0 92 20 143/96 (112) 100 Orders Orders Acetamin-Hydrocod 325-7.5 Mg ([place] 7.5 (01/17/17 11:15) Cyclobenzaprine (Flexeril) (01/17/17 11:15) Ct Lumb Spine W/O Contrast (01/17/17 11:09) Acetamin-Hydrocod 325-7.5 Mg ([place] 7.5 (01/17/17 11:42) Cyclobenzaprine (Flexeril) (01/17/17 11:37) Ed Discharge Order (01/17/17 12:21) [facility] Medical Decision Making Medical Screen Exam Complete: Yes Emergency Medical Condition: Yes Differential Diagnosis Acute on chronic back pain versus discitis versus sciatica versus subluxation versus fracture versus other Narrative Course 41 YO M presents to the ED for evaluation of 10/10 back pain, radiating down the right leg. Onset just before arrival, after the patient was attempting to lower a generator out of the back of a truck. Patient states that he felt and heard a pop. He states that pain began shooting down his leg. He endorses numbness of that leg. He has been ambulatory since the accident. Vitals reviewed. On physical exam the patient is uncomfortable appearing. He has 5/5 strength in the bilateral lower extremities. Straight leg raise is negative bilaterally. He does have some midline tenderness in the lumbar area. Patient was administered by mouth and Flexeril. CT reveals bulging disc at L3 4, L4 5 and L5-S1. Patient was provided a copy of his CT. He is prescribed a short course of anti-inflammatories and muscle relaxants. He is instructed to return to normal, gentle activities as tolerated, avoid heavy lifting or long periods of standing. He was provided with the on-call neurologist contact information and instructed to follow-up. He indicated understanding of the instructions and is agreeable to the care plan. He is stable and discharged home. Diagnosis Primary Impression: Back pain Qualified Codes: M54.41 - Lumbago with sciatica, right side Additional Impressions: Bulging lumbar disc Muscle strain Referrals: Ace Escudero MD Patient Instructions: General Instructions, Lumbar Disc Herniation (ED), Sciatica (ED) Departure Forms: Tests/Procedures, Work Release Enter return to work date: Jan 20, 2017 Additional Instructions: Rest, hydrate. Return to normal, gentle activities as tolerated. A mixture of rest and activity is best for back pain. Take the anti-inflammatories and muscle relaxants as prescribed. Do not drive while taking muscle relaxants as this can make you dizzy and drowsy. Follow-up with the neurologist for further evaluation. Return to the ED for any urgent or emergent medical condition. Med/Other Pt SpecificInfo: Prescription(s) given Scripts Cyclobenzaprine (Flexeril) 10 Mg Tab 10 MG PO TID for Muscle Spasm, #15 TAB 0 Refills Prov: Mabel Sebastian MD 01/17/17 Ibuprofen (Ibuprofen) 800 Mg Tab 800 MG PO Q8H Y for Pain/Inflammation, #15 TAB 0 Refills Prov: Mabel Sebastian MD 01/17/17 Disposition: 01 DISCHARGE HOME Condition: Stable Ana Sotelo Jan 17, 2017 11:04
[2017-01-17] MEDS ORDERED: ACETAMINOPHEN/HYDROcodone 325 MG/7.5 MG TAB PO ONE (11:15)
[2017-01-17] MEDS ORDERED: CYCLOBENZAPRINE HCL 10 MG TAB PO ONE (11:15)
[2017-01-17] MEDS ORDERED: CYCLOBENZAPRINE HCL 10 MG TAB ONE (11:37)
[2017-01-17] MEDS ORDERED: ACETAMINOPHEN/HYDROcodone 325 MG/7.5 MG TAB ONE (11:42)
--- NOTE | 2017-01-17 11:58 | RADRPT ---
EXAM DATE/TIME: 01/17/2017 11:26 [place] COMPARISON: No previous studies available for comparison. INDICATIONS : Right lower back pain. RADIATION DOSE: 17.24 CTDIvol (mGy) MEDICAL HISTORY : None SURGICAL HISTORY : None. ENCOUNTER: Initial ACUITY: 1 day PAIN SCALE: 10/10 LOCATION: Right lower back TECHNIQUE: Volumetric scanning of the lumbar spine was performed. Multiplanar reconstructions in the sagittal, coronal and oblique axial planes were performed. Using automated exposure control and adjustment of the mA and/or kV according to patient size, radiation dose was kept as low as reasonably achievable t o obtain optimal diagnostic quality images. DICOM format image data is available electronically for review and comparison. FINDINGS: VERTEBRAE: Normal vertebral body height. ALIGNMENT: No evidence of subluxation. T12-L1: The thecal sac has a normal diameter. No evidence of disc bulge or protrusion. The neural foramina are patent bilaterally. L1-L2: The thecal sac has a normal diameter. No evidence of disc bulge or protrusion. The neural foramina are patent bilaterally. L2-L3: The thecal sac has a normal diameter. No evidence of disc bulge or protrusion. The neural foramina are patent bilaterally. L3-L4: Asymmetric right-sided disc bulge abuts ventral thecal sac. No canal stenosis. The neural foramina a re patent bilaterally. L4-L5: Asymmetric right-sided disc bulge abuts ventral thecal sac. No canal stenosis. The neural foramina a re patent bilaterally. L5-S1: Small central/left paracentral protrusion abuts the ventral thecal sac. No canal stenosis The neural foramina are patent bilaterally. CONCLUSION: 1. This bulges at L3-4 and L4-5 levels without canal stenosis. 2. Small central/left paracentral protrusion at L5-S1 without canal stenosis. Bi Rocha MD on January 17, 2017 at 11:54 Board Certified Radiologist. This report was verified electronically.
[2017-01-17] MEDS ORDERED: CYCL10TA PO (12:21)
[2017-01-17] MEDS ORDERED: IBUP1TAB7 PO (12:21)
== END 2017-01-17 12:42 | disposition home or self-care (01) ==
LOC: NEPK 10:39
DX: S39.012A Strain of muscle, fascia and tendon of lower back, initial encounter (principal); F17.200 Nicotine dependence, unspecified, uncomplicated; X50.9XXA Other and unspecified overexertion or strenuous movements or postures, initial encounter
CPT/HCPCS: 72131; 99284

== ENCOUNTER 2017-05-24 08:40 | Emergency (ER) | payer SELFPAY ==
[~2017-05-24 08:40] MED LIST changes: -BACT800T5 PO; -CEPH-460 PO; +CYCL10TA PO; +IBUP1TAB7 PO
[2017-05-24 08:46] VITALS: BP 156/77; PULSE 98; RESP 24; TEMP 98.6; O2SAT 99
[2017-05-24] MEDS ORDERED: TRAM50 PO (09:27)
[2017-05-24] MEDS ORDERED: BACT800T5 PO (09:27)
--- NOTE | 2017-05-24 09:27 | PD ---
HPI Chief Complaint: Skin Problem Time Seen by Provider: 09:07 Travel History International Travel<30 days: No Contact w/Intl Traveler<30days: No Traveled to known affect area: No History of Present Illness HPI Patient comes in complaining of a lump to his right shoulder blade on the back, has been going on for a day and a half. It is red and swollen painful and had a little bit of pus leaked out of it yesterday night. Patient denies any alleviating factors. Patient denies any associated factors such as fever chills , rash, neck pain, headache, chest pain, back pain, flank pain, abdominal pain. Patient states that his last tetanus was 2 months ago Patient denies any significant past medical or surgical history other than kidney stones PFSH Past Medical History Cancer: No Cardiovascular Problems: No Diminished Hearing: No Endocrine: No Genitourinary: No Immune Disorder: No Musculoskeletal: No Neurologic: No Psychiatric: No Reproductive: No Respiratory: No Immunizations Current: Yes Social History Alcohol Use: No Tobacco Use: Yes (1 PK) Substance Use: Yes (MARIJUANA) Allergies-Medications (Allergen,Severity, Reaction): Coded Allergies: No Known Allergies (Verified Allergy, Unknown, 01/17/17) Reported Meds & Prescriptions Reported Meds & Active Scripts Active Flexeril (Cyclobenzaprine HCl) 10 Mg Tab 10 Mg PO TID Ibuprofen 800 Mg Tab 800 Mg PO Q8H PRN Review of Systems General / Constitutional: No: Fever Eyes: No: Visual changes HENT: No: Headaches Cardiovascular: No: Chest Pain or Discomfort Respiratory: No: Shortness of Breath Gastrointestinal: No: Abdominal Pain Genitourinary: No: Dysuria Musculoskeletal: No: Pain Skin: Positive Lumps Neurologic: No: Weakness Psychiatric: No: Depression Endocrine: No: Polydipsia Hematologic/Lymphatic: No: Easy Bruising Physical Exam Narrative GENERAL: SKIN: Warm and dry. 3 cm lump diameter over the right mid scapula, HEAD: Atraumatic. Normocephalic. EYES: Pupils equal and round. No scleral icterus. No injection or drainage. ENT: No nasal bleeding or discharge. Mucous membranes pink and moist. NECK: Trachea midline. No JVD. CARDIOVASCULAR: Regular rate and rhythm. RESPIRATORY: No accessory muscle use. Clear to auscultation. Breath sounds equal bilaterally. GASTROINTESTINAL: Abdomen soft, non-tender, nondistended. Hepatic and splenic margins not palpable. MUSCULOSKELETAL: Extremities without clubbing, cyanosis, or edema. No obvious deformities. NEUROLOGICAL: Awake and alert. No obvious cranial nerve deficits. Motor grossly within normal limits. Five out of 5 muscle strength in the arms and legs. Normal speech. PSYCHIATRIC: Appropriate mood and affect; insight and judgment normal. Data Data Last Documented VS Vital Signs Date Time Temp Pulse Resp B/P (MAP) Pulse Ox O2 Delivery O2 Flow Rate FiO2 05/24/17 08:46 98.6 98 24 156/77 (103) 99 MDM Medical Decision Making Medical Screen Exam Complete: Yes Emergency Medical Condition: Yes Medical Record Reviewed: Yes Differential Diagnosis Cellulitis versus abscess versus lymphangitis Narrative Course Clinically based on examination there was no fluctuance only induration over the region consistent with cellulitis and without any active abscess. Diagnosis Primary Impression: Right mid scapula cellulitis Scripts Tramadol (Ultram) 50 Mg Tab 50 MG PO Q8H Y for PAIN, #12 TAB 0 Refills Prov: Ryan Cain MD 05/24/17 Sulfamethoxazole-Trimethoprim (Bactrim DS) 800-160 Mg Tab 1 TAB PO BID for Infection, #20 TAB 0 Refills Prov: Ryan Cain MD 05/24/17 Disposition: 01 DISCHARGE HOME Condition: Stable Ryan Cain MD May 24, 2017 09:27
[2017-05-24] MEDS ORDERED: traMADol HCL 50 MG TAB PO ONE (10:00)
[2017-05-24] MEDS ORDERED: SULFAMETHOXAZOLE-TRIMETHOPRIM DS 800-160 MG TAB PO ONE (10:00)
== END 2017-05-24 10:24 | disposition home or self-care (01) ==
LOC: NEPD 08:40
DX: L03.312 Cellulitis of back [any part except buttock and flank] (principal); F17.200 Nicotine dependence, unspecified, uncomplicated; Z87.442 Personal history of urinary calculi
CPT/HCPCS: 99283